=== PATIENT | male | born 1945 | race Caucasian/White ===

== ENCOUNTER 2017-09-05 05:00 | Observation (INO) | payer OTHER ==
[~2017-09-05] VITALS: Ht 175.3 cm; Wt 99.7 kg
[~2017-09-05 05:00] MED LIST: BABY ASPIRIN81 M1 PO; PRAVASTATIN SOD80 MG PO; SYNTHROID75 MCG PO
[2017-09-05 06:19] LABS: BASOPHIL (%) 0.7 % (0-1); BASOPHIL COUNT 0.1 K/uL (0-0.1); EOSINOPHIL COUNT 0.2 K/uL (0-0.3); HEMOGLOBIN 15.3 G/DL (12.5-16.6); IMMATURE GRANULOCYTE (%) 0.7 % (0.0-0.7); LYMPHOCYTE (%) 23.2 % (15-42); LYMPHOCYTE COUNT 1.6 K/uL (1.0-2.8); MCH 30.9 PG (29.0-34.0); MCV 90.9 FL (86-99); MONOCYTE COUNT 0.6 K/uL (0-0.8); NEUTROPHIL (%) 63.4 % (45-76); NEUTROPHIL COUNT 4.4 K/uL (1.8-6.4); PLATELET COUNT 186 K/uL (156-360); RBC DIS.WIDTH-CV 12.4 % (11.8-14.6); RBC DIS.WIDTH-SD 40.8 % (39-53); RED BLOOD COUNT 4.95 M/uL (4.00-5.50)
[2017-09-05 06:31] LABS: CHLORIDE 108 mEq/L (99-109); POTASSIUM 4.3 mEq/L (3.7-5.4); SODIUM 141 mEq/L (136-147)
[2017-09-05 06:33] LABS: GLUCOSE 109 mg/dL (70-99)
[2017-09-05 06:37] LABS: CREATININE 1.2 mg/dL (0.6-1.3); GFR ESTIMATE (CALCULATED) > 59 mL/min/ (58.99-99999); UREA NITROGEN (BUN) 20 mg/dL (9-23)
[2017-09-05 06:40] LABS: TROP-I INTERPRETATION NEGATIVE; TROPONIN-I 0.02 ng/mL (0.0-0.30)
[2017-09-05] MEDS ORDERED: LIPITOR40 MG PO (07:22)
[2017-09-05] MEDS ORDERED: COZAAR50 MG PO (07:22)
[2017-09-05] MEDS ORDERED: VITAMIN D2000 UNIT PO (07:22)
[2017-09-05 08:28] LABS: APPEARANCE CLEAR ((CLEAR)); BILIRUBIN NEGATIVE; BLOOD NEGATIVE; COLOR YELLOW ((YELLOW)); GLUCOSE (STRIP) NEGATIVE; KETONES NEGATIVE; LEUKOCYTES NEGATIVE; NITRITE NEGATIVE; PROTEIN (STRIP) NEGATIVE; SPECIFIC GRAVITY 1.015 (1.000-1.030); UROBILINOGEN 0.2 MG/DL (0.2-1.0)
[2017-09-05 08:44] LABS: CREATINE KINASE 91 IU/L (1-294); HDL CHOLESTEROL 24 MG/DL (Desirable>=40); LDL CHOLESTEROL 38 mg/dL (Desirable<100); NON-HDL CHOLESTEROL 58 mg/dL (Desirable<160); TOTAL CHOLESTEROL 82 mg/dL (Desirable<200); TRIGLYCERIDES 100 MG/DL (Normal: <150)
[2017-09-05 08:46] VITALS: BP 144/67
[2017-09-05 10:36] LABS: THYROTROPIN (TSH) 0.89 MIU/L (0.4-5.5)
[2017-09-05 10:42] LABS: TROP-I INTERPRETATION NEGATIVE; TROPONIN-I < 0.01 ng/mL (0.0-0.30)
[2017-09-05 11:36] VITALS: BP 119/67
[2017-09-05 16:20] VITALS: BP 120/65
[2017-09-05 18:20] LABS: TROP-I INTERPRETATION NEGATIVE; TROPONIN-I 0.01 ng/mL (0.0-0.30)
[2017-09-05 21:42] VITALS: BP 145/68
[2017-09-05 23:59] VITALS: BP 121/70
[2017-09-06 04:01] VITALS: BP 135/74
[2017-09-06 05:39] LABS: HEMATOCRIT 43.6 % (38.0-50.0); MCHC 34.4 G/DL (30.0-36.0); MCV 90.1 FL (86-99); PLATELET COUNT 211 K/uL (156-360); RBC DIS.WIDTH-CV 12.5 % (11.8-14.6); RBC DIS.WIDTH-SD 41.2 % (39-53); RED BLOOD COUNT 4.84 M/uL (4.00-5.50); WHITE BLOOD COUNT 8.2 K/uL (4.1-10.2)
[2017-09-06 06:08] LABS: CHLORIDE 106 MEQ/L (99-109); CREATININE 1.2 MG/DL (0.6-1.3); GFR ESTIMATE (CALCULATED) > 59 mL/min/ (58.99-99999); GLUCOSE 100 mg/dL (70-99); POTASSIUM 4.3 MEQ/L (3.7-5.4); SODIUM 139 MEQ/L (136-147); UREA NITROGEN (BUN) 18 mg/dL (9-23)
[2017-09-06 09:43] VITALS: BP 157/79
[2017-09-06 11:35] VITALS: BP 157/75
[2017-09-06 20:00] VITALS: BP 132/67
[2017-09-07 00:06] VITALS: BP 136/66
[2017-09-07 05:04] VITALS: BP 142/72
[2017-09-07 09:12] VITALS: BP 135/71
== END 2017-09-07 11:31 | disposition home or self-care (01) ==
LOC: EME → EDBD 05:00 → EDOF 07:28 → 5WEST 07:28 → ENRESERV 07:32 → 5WEST 08:34
PROVIDERS: Emergency Medicine; Internal Medicine
DX: R55 Syncope and collapse (principal); I25.810 Atherosclerosis of coronary artery bypass graft(s) without angina pectoris; I25.82 Chronic total occlusion of coronary artery; I11.9 Hypertensive heart disease without heart failure; E78.5 Hyperlipidemia, unspecified; E03.9 Hypothyroidism, unspecified; E78.00 Pure hypercholesterolemia, unspecified; R94.31 Abnormal electrocardiogram [ECG] [EKG]; Z79.82 Long term (current) use of aspirin; E66.9 Obesity, unspecified; M79.661 Pain in right lower leg; M79.662 Pain in left lower leg
CPT/HCPCS: 70450; 80048; 80061; 81003; 82550; 82948; 84439; 84443; 84484; 85025; 85027; 93005; 99281; 99285; C1769; C1887; C1894; G0378; J1644; J1650; J2250; J3010